=== PATIENT | female | born 1955 | race Caucasian/White ===

== ENCOUNTER → 2021-05-21 | Outpatient (CLI) | payer MEDICARE | LOC: WOUNDCARE 08:41 | PROVIDERS: ATTEND Family Medicine | DX: L97.212 Non-pressure chronic ulcer of right calf with fat layer exposed (principal); I89.0 Lymphedema, not elsewhere classified; N18.32 Chronic kidney disease, stage 3b; I70.232 Atherosclerosis of native arteries of right leg with ulceration of calf; I70.233 Atherosclerosis of native arteries of right leg with ulceration of ankle; E66.01 Morbid (severe) obesity due to excess calories; L03.115 Cellulitis of right lower limb | CPT/HCPCS: 99204 ==

== ENCOUNTER → 2021-05-26 | Outpatient (CLI) | payer MEDICARE | LOC: WOUNDCARE 13:13 | PROVIDERS: ATTEND Family Medicine | DX: L97.212 Non-pressure chronic ulcer of right calf with fat layer exposed (principal); I89.0 Lymphedema, not elsewhere classified; N18.32 Chronic kidney disease, stage 3b; I70.232 Atherosclerosis of native arteries of right leg with ulceration of calf; I70.233 Atherosclerosis of native arteries of right leg with ulceration of ankle; E66.01 Morbid (severe) obesity due to excess calories; L03.115 Cellulitis of right lower limb; I96 Gangrene, not elsewhere classified | CPT/HCPCS: 99213 ==

== ENCOUNTER → 2021-05-26 | Outpatient (CLI) | payer MEDICARE ==
--- NOTE | 2021-05-26 14:55 | Diagnostic Imaging Report ---
PROCEDURE: US right lower extremity venous. TECHNIQUE: Multiple real-time grayscale images were obtained over the right lower extremity in various projections. Additional spectral analysis and color Doppler duplex images were also obtained. INDICATION: Chronic ulceration, right calf. FINDINGS: Color Doppler imaging shows normal blood flow throughout the right lower extremity venous system. Calf compression shows normal augmentation of flow at the popliteal level. No evidence of popliteal cyst. IMPRESSION: No evidence of venous thrombosis within the right lower extremity. Dictated by: Dictated on workstation # [id number]
--- NOTE | 2021-05-26 15:42 | Diagnostic Imaging Report ---
INDICATION: Right leg pain. TECHNIQUE: Right leg arterial Doppler study performed in the routine fashion with color flow Doppler and waveform analysis. FINDINGS: The waveforms on the right side were triphasic in the common femoral artery and profunda femoris artery and proximal SFA and monophasic in the mid to distal SFA and popliteal artery. Flow was not seen in the tibial vessels. There is moderate velocity elevation in the common femoral artery and proximal SFA. IMPRESSION: Moderate velocity elevation in the common femoral artery and proximal SFA, flow converts to monophasic in distal SFA and popliteal artery. 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 No detectable flow is seen in the tibial arteries. Dictated by: Dictated on workstation # [id number]
== END ==
LOC: RAD 13:00
PROVIDERS: ATTEND Family Medicine
DX: L97.212 Non-pressure chronic ulcer of right calf with fat layer exposed (principal)
CPT/HCPCS: 93926

== ENCOUNTER → 2021-06-01 | Outpatient (CLI) | payer MEDICARE | LOC: WOUNDCARE 13:41 | PROVIDERS: ATTEND Family Medicine | DX: I96 Gangrene, not elsewhere classified (principal); L97.212 Non-pressure chronic ulcer of right calf with fat layer exposed; I89.0 Lymphedema, not elsewhere classified; N18.32 Chronic kidney disease, stage 3b; I70.232 Atherosclerosis of native arteries of right leg with ulceration of calf; I70.233 Atherosclerosis of native arteries of right leg with ulceration of ankle; E66.01 Morbid (severe) obesity due to excess calories; L03.115 Cellulitis of right lower limb; Z68.45 Body mass index [BMI] 70 or greater, adult | CPT/HCPCS: 87070; 87077; 87205; 99213 ==

== ENCOUNTER → 2021-06-08 | Outpatient (CLI) | payer MEDICARE | LOC: WOUNDCARE 13:08 | PROVIDERS: ATTEND Family Medicine | DX: I96 Gangrene, not elsewhere classified (principal); L97.212 Non-pressure chronic ulcer of right calf with fat layer exposed; I89.0 Lymphedema, not elsewhere classified; N18.32 Chronic kidney disease, stage 3b; I70.232 Atherosclerosis of native arteries of right leg with ulceration of calf; I70.233 Atherosclerosis of native arteries of right leg with ulceration of ankle; E66.01 Morbid (severe) obesity due to excess calories; L03.115 Cellulitis of right lower limb; B96.5 Pseudomonas (aeruginosa) (mallei) (pseudomallei) as the cause of diseases classified elsewhere; Z68.45 Body mass index [BMI] 70 or greater, adult | CPT/HCPCS: 99212 ==

== ENCOUNTER → 2021-06-15 | Outpatient (CLI) | payer MEDICARE | LOC: WOUNDCARE 12:49 | PROVIDERS: ATTEND Family Medicine | DX: L97.212 Non-pressure chronic ulcer of right calf with fat layer exposed (principal); I89.0 Lymphedema, not elsewhere classified; N18.32 Chronic kidney disease, stage 3b; I70.232 Atherosclerosis of native arteries of right leg with ulceration of calf; E66.01 Morbid (severe) obesity due to excess calories; I96 Gangrene, not elsewhere classified | CPT/HCPCS: 99212 ==

== ENCOUNTER → 2021-07-02 | Outpatient (CLI) | payer MEDICARE | LOC: WOUNDCARE 12:47 | PROVIDERS: ATTEND Family Medicine | DX: I89.0 Lymphedema, not elsewhere classified (principal); L97.212 Non-pressure chronic ulcer of right calf with fat layer exposed; N18.32 Chronic kidney disease, stage 3b; I70.232 Atherosclerosis of native arteries of right leg with ulceration of calf; E66.01 Morbid (severe) obesity due to excess calories; Z68.45 Body mass index [BMI] 70 or greater, adult | CPT/HCPCS: 99212 ==